=== PATIENT | female | born 1965 | race Caucasian/White ===

== ENCOUNTER → 2016-06-04 | Outpatient (CLI) | payer BC, OTHER ==
[~2016-06-04] MED LIST: LEVO100T12 PO; METH10CP PO; MULT-399; NAPR220T61 PO
== END ==
LOC: WC.BC 08:26
DX: Z12.31 Encounter for screening mammogram for malignant neoplasm of breast (principal)
CPT/HCPCS: 77063; G0202

== ENCOUNTER → 2016-08-05 | Outpatient (CLI) | payer BC | LOC: NEU 08:12 | PROVIDERS: ATTEND Internal Medicine | DX: M54.32 Sciatica, left side (principal) | CPT/HCPCS: 95886; 95909 ==